=== PATIENT | male | born 1985 | race Caucasian/White ===

== ENCOUNTER 2023-09-21 07:02 | Emergency (ER) | payer OTHER, SELFPAY ==
[2023-09-21 07:04] VITALS: BP 142/82; PULSE 60; RESP 18; TEMP 35.7; O2SAT 95; BMI 36.7
--- NOTE | 2023-09-21 07:10 | ED.VIS.CHEST ---
HPI History of Present Illness Chief Complaint: Chest Pain Informant: patient Onset/Context/Timing Onset: Today Activity at onset: gradual Timing: Continuous and Lasts (Approximately 1 hour) Quality: Positive for Tightness Location: Substernal, Left Parasternal and Left Chest Worsened By: Nothing Relieved By: - (Baby aspirin) Associated Symptoms: Positive for Nausea, Vomiting, Diaphoresis, Dyspnea, Lightheadedness and Palpitations; Negative for Cough, Fever or Acid Reflux Narrative Narrative: Patient presents with chest pain that began this morning. Patient states that yesterday he was feeling rather sluggish. Patient states that today he started feeling dizzy and then developed pain in his chest. Patient states it is over the substernal area and radiates into his left chest and into his back. Patient states he took 4 baby aspirin at home today and his pain improved somewhat after that. Patient states nothing makes his pain worse. Patient states he did have some nausea and vomiting yesterday. Patient states he had some diaphoresis and shortness of breath today. Patient also states he felt like his heart was racing today. Currently, patient states his symptoms are improving. Patient states that his symptoms lasted approximate 1 hour this morning. PFSH PFS Medical History no medical history no medical history Home Medications NK 09/21/23 [History Last Taken Unknown] Allergy/AdvReac Type Severity Reaction Status Date / Time No Known Allergies Allergy Verified 09/21/23 07:07 Surgical History (Updated 09/21/23 @ 07:[address] Sam Kruse DO) History of repair of anterior cruciate ligament Social History (Updated 09/21/23 @ 07:[address] Sam Kruse DO) Smoking Status: Light Smoker (<10/day) substance use type: marijuana ROS ROS ED Constitutional Constitutional ED: Denies chills or fever(s) Eyes Eyes: Reports blurry vision; Denies diplopia ENT ENT ED: Denies rhinorrhea or sore throat Cardiovascular Cardiovascular: Reports chest pain and palpitations Respiratory/Chest Respiratory/Chest: Reports dyspnea; Denies cough Gastrointestinal Gastrointestinal: Reports nausea and vomiting; Denies abdominal pain Genitourinary Genitourinary ED: Denies dysuria or hematuria Musculoskeletal Musculoskeletal: Reports back pain; Denies neck pain Integumentary Denies abscess or rash Neurologic Neurologic: Reports headache(s); Denies weakness Allergic/Immunologic Allergic/Immunologic ED: Denies mouth swelling or urticaria EXAM Physical Exam Const Vital Signs: 09/21/23 07:04 09/21/23 07:27 09/21/23 08:56 Temperature 96.3 F L Temperature Source Temporal Pulse Rate 60 59 L Respiratory Rate 18 12 Blood Pressure 142/82 H 124/75 H Blood Pressure Mean 102 91 Pulse Ox 95 93 96 Oxygen Delivery Method Room Air Room Air Room Air 09/21/23 10:17 Temperature Temperature Source Pulse Rate 59 L Respiratory Rate 18 Blood Pressure 112/68 Blood Pressure Mean 82 Pulse Ox 95 Oxygen Delivery Method Room Air Positive well nourished and well developed General Appearance ED: well developed and NAD Neck supple and no JVD Chest Wall palpation of chest normal Resp normal respiratory effort and clear to auscultation bilaterally Cardio regular rate and regular rhythm GI soft to palpation, non-tender and non-distended Extremity General Extremety ED: Negative for edema or tenderness General Extremity: Negative for edema Neuro oriented x3, CN's II-XII intact bilaterally and no sensory deficits noted Sensorium / Orientation: awake and alert Motor Exam: strength 5/5 throughout Psych mental status grossly normal Heart Score History: Slightly/Non-Suspicious ECG: Normal Age: </= 45 years Risk Factors: 1 or 2 Risk Factors Troponin: </= Normal Limit Score: 1 MDM MDM MDM Narrative Medical decision making narrative: Differential diagnosis includes cardiac dysrhythmia, cardiac ischemia, pneumonia, pneumothorax, electrolyte abnormality, anxiety, GERD, and musculoskeletal pain. EKG will be obtained to assess for cardiac dysrhythmia and cardiac ischemia. Chest x-ray will be obtained to assess for pneumonia and pneumothorax. CBC will be obtained to assess for leukocytosis and anemia. Basic metabolic profile will be obtained to assess for electrolyte abnormality and renal function. High-sensitivity troponin will be obtained to assess for cardiac ischemia. 2-hour repeat high-sensitivity troponin will be obtained to assess for ongoing cardiac ischemia. Patient has a Wells score of 0. I do not feel this is from a pulmonary embolism. Lab Data Attestation: I reviewed the patient's lab results. Lab results narrative: CBC was reviewed and was within normal limits. Basic metabolic profile was reviewed. Potassium was slightly low at 3.1. The remainder is within normal limits. Initial high-sensitivity troponin was reviewed and was normal at less than 3. 2-hour repeat high-sensitivity troponin was reviewed and was normal at 3. Labs: Laboratory Results - last 24 hr 09/21/23 09/21/23 07:11 09:22 WBC 8.2 RBC 5.09 Hgb 15.4 Hct 45.0 MCV 88.4 MCH 30.3 MCHC 34.2 RDW Std Deviation 40.4 RDW Coeff of Zachary 12.3 Plt Count 389 MPV 9.9 Immature Gran % (Auto) 0.600 Neut % (Auto) 49.1 Lymph % (Auto) 38.7 [place] % (Auto) 7.1 Eos % (Auto) 4.0 Baso % (Auto) 0.5 Absolute Neuts (auto) 4.0 Absolute Lymphs (auto) 3.16 Nucleated RBC % 0 Sodium 139 Potassium 3.1 L Chloride 108 H Carbon Dioxide 25.0 Anion Gap 6 BUN 21 H Creatinine 0.95 Estim Creat Clear Calc 139.88 Est GFR (MDRD) Af Amer 113 Est GFR (MDRD) Non-Af 93 BUN/Creatinine Ratio 22.1 H Glucose 157 H Calcium 8.7 Troponin I High Sens < 3 L 3 Radiography Diagnostic Testing: Clinical Impression(s) from Imaging Studies Chest X-Ray 09/21/23 07:40 IMPRESSION: No acute cardiopulmonary disease. Electronically Signed: Samir Jules MD at 8:13 EST , Portable 1 view chest x-ray was obtained. On my independent interpretation, lung oliveros are clear. There is normal cardiac silhouette. Bony thorax is normal. There is no acute process noted. Radiologist also interpreted the x-ray and agrees. EKG Initial EKG: Attestation: I personally reviewed and interpreted this EKG as follows: Interpretation: Sinus Rhythm (61), No Acute Injury Pattern and RBBB Comments: EKG was obtained. On my independent interpretation, there is a normal sinus rhythm with a rate of 61. VT interval was normal at 164 ms. QRS interval was slightly prolonged at 130 ms. QTc interval was normal at 460 ms. [place] is normal at 48. There is a right bundle branch block pattern noted. There are no acute ST or T wave changes noted. Prior EKG tracings: not available for review Prior: No Prior Treatment and Re-Evaluation :: Patient was advised of his findings. Patient was given a dose of potassium here. Patient has a HEART score of 1. Patient was advised that this is low risk for acute cardiac event. Patient was instructed to follow-up with his primary care physician in 5 to 7 days. Patient was instructed to return if worse in any way. Patient understood and was agreeable with the plan. All questions were answered. Discharge Plan Triage Chief Complaint: Chest Pain ED Provider: Sam Kruse Dx/Rx/DC Orders Clinical Impression: Chest pain of uncertain etiology Instructions: ED Chest Pain, Uncertain Cause Prescriptions: No Action NK Primary Care Provider: Care Physician,No Primary Referrals: Sam Lester MD [Med Staff - Mortgage Loan Officer Originator] - 5-7 Days Care Physician,No Primary [Primary Care Provider] - Disposition Disposition: Home, Self Care
--- NOTE | 2023-09-21 07:26 | EKG12_ITS ---
Test Reason : CHEST PAIN Blood Pressure : / mmHG Vent. Rate : 061 BPM Atrial Rate : 061 BPM P-R Int : 164 ms QRS Dur : 130 ms QT Int : 414 ms P-R-T Axes : 027 048 019 degrees QTc Int : 416 ms Normal sinus rhythm Right bundle branch block Abnormal ECG Confirmed by MIGUEL ÁNGEL BAUER, BECCA ([id number]), editor sound EVERETT RUIZ ([id number]) on 09/25/2023 9:30:04 AM Referred By: WILL Confirmed By:JOAQUINA DEL ROSARIO MD
[2023-09-21 07:27] VITALS: O2SAT 93
--- NOTE | 2023-09-21 07:40 | RAD_ITS ---
EXAM: XR CHEST, 1 VIEW CLINICAL INDICATION: chest pain TECHNIQUE: Frontal view of the chest. COMPARISON: No relevant prior studies available. FINDINGS: LUNGS AND PLEURAL SPACES: Normal. No consolidation or edema. No pneumothorax. No effusion. HEART: Normal heart size. MEDIASTINUM: No mediastinal or hilar mass. BONES/JOINTS: No acute abnormality. RAD/Chest 1 View (Portable) IMPRESSION: No acute cardiopulmonary disease. Electronically Signed: Samir Jules MD at 8:13 EST ,
--- OUTSIDE RECORDS SUMMARY | 2023-09-21 07:42 | XMS RPT_ITS | CCD ---
Author Name Unknown Address [address] [place] [address] Organization [facility] Care Team Providers Care Emr Analyst Name Role Phone STEPHEN GOODMANARDO Unavailable Unavailable DELMA GOODMAN Unavailable Unavailable NO REFERRING DR Unavailable Unavailable Allergies Allergy Classification Reported Allergen(s) Allergy Type Date of Onset Reaction(s) Facility (1 source) Penicillins; Translations: [PENICILLINS] Propensity to adverse reactions (disorder) [facility] Repository Problems Problem Classification Problem Date Documented Da te Episodic/Chronic Cardiac dysrhythmias (1 source) Palpitations; Translations: [PALPITATIONS] Onset: 06-24-2016 Episodic Nonspecific chest pain (3 sources) Chest pain, unspecified; Translations: [CHEST PAIN UNSPECIFIED] Onset: 06-24-2016 Episodic Encounters Encounter Date Encounter Type Care Provider Facility Start: 06-24-2016 End: 06-24-2016 Emergency department patient visit DELMA GOODMAN Facility:[facility] Payers Date Payer Category Payer Policy ID Unknown [id number] Summary Purpose Family History No Family History Records Found Advance Directives No Advanced Directives Records Found Additional Source Comments (unrecognized sect ion and content) No Status Records Found INFORMATION SOURCE (unrecogn ized section and content)
[2023-09-21 07:54] LABS: Absolute Lymphocyte Count 3.16 X10^3/uL (0.83-4.51); Basophil# 0.04 X10^3/uL; Basophil% 0.5 % (0-1); Eosinophil# 0.33 X10^3/uL; Hemoglobin 15.4 g/dL (13.0-16.5); Lymphocyte # 3.16 X10^3/ul (0.83-4.51); Lymphocyte % 38.7 % (19-41); Mean Corp Hgb Conc 34.2 g/dL (32-36); Mean Corpuscular Hgb 30.3 pg (27.0-32.0); Mean Corpuscular Volume 88.4 fL (80-94); Mean Platelet Vol. 9.9 fl (6.2-12.0); Monocyte# 0.58 X10^3/uL; Monocyte% 7.1 % (0-10); NRBC Flagged by Analyzer 0 % (0-5); Neutrophil # 4.01 X10^3/uL (2.7-7.7); Neutrophil % 49.1 % (47-70); Platelet Count 389 K/mm3 (150-450); RBC Distribution Width CV 12.3 % (11.6-14.6); RBC Distribution Width SD 40.4 fl (35.1-43.9); Red Blood Count 5.09 M/mm3 (4.6-6.2); White Blood Count 8.2 K/mm3 (4.4-11.0)
[2023-09-21 08:04] LABS: Anion Gap 6 (5-15); BUN 21 mg/dL (7-18); BUN/Creat Ratio 22.1 RATIO (10-20); Calcium,Total 8.7 mg/dL (8.5-10.1); Chloride 108 mmol/L (98-107); Creatinine, Serum 0.95 mg/dL (0.70-1.30); EST Glomerular Filtration Rate 93 mL/min (>60); Est Glom Filt Rate - Afr Amer 113 mL/min (>60); Estimated Creatinine Clearance 139.88 ml/min; Glucose 157 mg/dL (74-106); Potassium 3.1 mmol/L (3.5-5.1); Sodium Level 139 mmol/L (136-145); Troponin-I HS (w/2H Reflex) < 3 pg/mL (3.0-78.0)
[2023-09-21] MEDS: Potassium Chloride Oral Tablet 20 MEQ 40 MEQ PO (08:42)
[2023-09-21 08:56] VITALS: BP 124/75; PULSE 59; RESP 12; O2SAT 96
[2023-09-21 09:38] LABS: Reflex Troponin-HS? (from REC) Y
[2023-09-21 09:58] LABS: Troponin-I HS 3 pg/mL (3.0-78.0)
[2023-09-21 10:17] VITALS: BP 112/68; PULSE 59; RESP 18; O2SAT 95
[2023-09-21 10:45] VITALS: BP 136/84; PULSE 59; RESP 16; TEMP 36.4; O2SAT 96
== END 2023-09-21 10:46 | disposition home or self-care (01) ==
PROVIDERS: Emergency Provider Emergency Medicine; Visit Provider Emergency Medicine
DX: R07.9 Chest pain, unspecified (principal); R06.00 Dyspnea, unspecified; E87.6 Hypokalemia; R11.2 Nausea with vomiting, unspecified; R00.2 Palpitations; F17.200 Nicotine dependence, unspecified, uncomplicated
CPT/HCPCS: 36415; 71045; 80048; 84484; 85025; 93005; 99284; A4216